=== PATIENT | male | born 1970 | race Caucasian/White ===

== ENCOUNTER 2017-11-23 02:55 | Emergency (ER) | payer OTHER, MEDICAID, SELFPAY | END 2017-11-23 06:40 | disposition short-term general hospital (02) | PROVIDERS: Emergency Provider Emergency Medicine; PCP Family Medicine; Visit Provider Emergency Medicine | DX: K75.9 Inflammatory liver disease, unspecified (principal); K81.9 Cholecystitis, unspecified | CPT/HCPCS: 51798; 74177; 76700; 80053; 80329; 81001; 83690; 85025; 96360; 99058; 99285; G0480; Q9967 ==